=== PATIENT | female | born 1985 | race African-American/Black ===

== ENCOUNTER 2017-01-28 00:05 | Emergency (ER) | payer OTHER, MEDICAID ==
[~2017-01-28] VITALS: Ht 177.8 cm; Wt 102.5 kg
[~2017-01-28 00:05] MED LIST: CIPR500T4 PO; Z.0.NO CURRENT MEDS
[2017-01-28 00:25] VITALS: BP 112/63; PULSE 84; RESP 16; TEMP 98.7; O2SAT 97
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
[2017-01-28] MEDS ORDERED: IBUP800T23 PO (01:04)
[2017-01-28] MEDS ORDERED: ROBA750T PO (01:04)
[2017-01-28 01:17] VITALS: BP 110/64; TEMP 98.5
== END 2017-01-28 01:40 | disposition home or self-care (01) ==
LOC: PHED 00:05
DX: S16.1XXA Strain of muscle, fascia and tendon at neck level, initial encounter (principal); V89.2XXA Person injured in unspecified motor-vehicle accident, traffic, initial encounter; Y92.410 Unspecified street and highway as the place of occurrence of the external cause
CPT/HCPCS: 99283

== ENCOUNTER 2017-08-20 14:40 | Emergency (ER) | payer MEDICAID, OTHER ==
[~2017-08-20] VITALS: Ht 177.8 cm; Wt 100.0 kg
[~2017-08-20 14:40] MED LIST changes: -CIPR500T4 PO; +IBUP1TAB7 PO; +ROBA750T PO; -Z.0.NO CURRENT MEDS
[2017-08-20 14:45] VITALS: BP 115/66; PULSE 85; RESP 16; TEMP 99.2; O2SAT 100
[2017-08-20 14:57] LABS: BILIRUBIN, URINE NEG (NEG); BLOOD, URINE TRACE (NEG); GLUCOSE,URINE NEG (NEG); KETONE, URINE NEG (NEG); NITRITE,URINE POS (NEG); PH, URINE 6.5 (5.0-8.5); URINE COLOR YELLOW (YELLW/STRAW); URINE LEUKOCYTE ESTERASE TRACE (NEG)
[2017-08-20 15:07] LABS: AMORPHOUS SEDIMENT, URINE FEW; BACTERIA, URINE MOD /hpf; RBC, URINE 0-3 /hpf (0-3); SQUAMOUS EPITHELIAL CELL URINE 0-5 /hpf (0-5)
[2017-08-20] MEDS ORDERED: SODIUM CHLOR 0.9% 1000 ML INJ 1,000 ML IV ONE (15:08)
[2017-08-20] MEDS ORDERED: SODIUM CHLORIDE 0.9% FLUSH 10 ML FLUSH IVF PRN (15:15)
--- NOTE | 2017-08-20 15:20 | PD ---
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 Patient reports that she thinks that she may be about 3 weeks , reports that her last menstrual cycle was on July 26, 2016. Patient reports that for the past 2 days, she has noticed increased lower abdominal cramping, reports that the last time she had this, she had an ectopic at 12 weeks. Patient reports that her ectopic was on the left, reports "they took out my fallopian tube on the left." Patient here as she was concerned that with the mild cramping on the right lower abdomen , reports that sometimes she has pains to her left lower abdomen; she is concerned that she may have an ectopic . Patient reports that she has had minimal pink tinged vaginal discharge for the past 2 days. Reports no fevers or chills, reports that the cramping to her abdomen does move in the left side to her right side, reports that the cramping is intermittent in nature. Patient reports that she does not have an [facility] SOFTWARE [facility] yet as she just got her medical insurance. [facility] Past Medical History Medical History: Denies Significant Hx Diminished Hearing: No ?: LMP: 07/26/17 Ectopic : Yes (L FALLOPIAN TUBE REMOVED) Past Surgical History Other Surgery: Yes (hx of ectopic ) Social History Alcohol Use: Yes (social) Tobacco Use: No Substance Use: No Allergies-Medications (Allergen,Severity, Reaction): Coded Allergies: No Known Allergies (Verified Adverse Reaction, Unknown, 08/20/17) Reported Meds & Prescriptions Reported Meds & Active Scripts Active Macrobid (Nitrofurantoin Monoh/Nitrofur Macro) 100 Mg Cap 100 Mg PO BID 10 Days Review of Systems General / Constitutional: No: Fever Eyes: No: Visual changes HENT: No: Headaches Cardiovascular: No: Chest Pain or Discomfort Respiratory: No: Shortness of Breath Gastrointestinal: Positive: Abdominal Pain Genitourinary: Positive: Discharge, Vaginal Bleeding, No: Dysuria Musculoskeletal: No: Pain Skin: No Rash Neurologic: No: Weakness Psychiatric: No: Depression Endocrine: No: Polydipsia Hematologic/Lymphatic: No: Easy Bruising Physical Exam Narrative GENERAL: Mild distress SKIN: Focused skin assessment warm/dry. HEAD: Atraumatic. Normocephalic. EYES: Pupils equal and round. No scleral icterus. No injection or drainage. ENT: No nasal bleeding or discharge. Mucous membranes pink and moist. NECK: Trachea midline. No JVD. CARDIOVASCULAR: Regular rate and rhythm. No murmur appreciated. RESPIRATORY: No accessory muscle use. Clear to auscultation. Breath sounds equal bilaterally. GASTROINTESTINAL: Abdomen soft, non-tender, nondistended. Hepatic and splenic margins not palpable. MUSCULOSKELETAL: No obvious deformities. No clubbing. No cyanosis. No edema. NEUROLOGICAL: Awake and alert. No obvious cranial nerve deficits. Motor grossly within normal limits. Normal speech. PSYCHIATRIC: Appropriate mood and affect; insight and judgment normal. Data Data Last Documented VS Vital Signs Date Time Temp Pulse Resp B/P (MAP) Pulse Ox O2 Delivery O2 Flow Rate FiO2 08/20/17 14:45 99.2 85 16 115/66 (82) 100 Orders Orders Urinalysis - C+S If Indicated (08/20/17 14:42) Ed Urine Pregnancytest Poc (08/20/17 14:42) Urine Culture (08/20/17 14:50) Beta Hcg (Quant/Titer) (08/20/17 15:08) Complete Blood Count With Diff (08/20/17 15:08) Comprehensive Metabolic Panel (08/20/17 15:08) Complete Rh (08/20/17 15:08) Iv Access Insert/Monitor (08/20/17 15:08) Ecg Monitoring (08/20/17 15:08) Sodium Chloride 0.9% Flush (Ns Flush) (08/20/17 15:15) Sodium Chlor 0.9% 1000 Ml Inj (Ns 1000 M (08/20/17 15:08) Gc And Chlamydia Pcr (08/20/17 15:15) Wet Prep Profile (08/20/17 15:15) Us Pelvis (Ques Pr/Ect)W Trans (08/20/17 ) Ceftriaxone Inj (Rocephin Inj) (08/20/17 16:00) Labs Laboratory Tests Test 08/20/17 14:50 08/20/17 15:10 08/20/17 16:00 Urine Color YELLOW Urine Turbidity CLEAR Urine pH 6.5 Urine Specific [place] 1.025 Urine Protein TRACE mg/dL Urine Glucose (UA) NEG mg/dL Urine Ketones NEG mg/dL Urine Occult Blood TRACE Urine Nitrite POS Urine Bilirubin NEG Urine Urobilinogen 0.2 MG/DL Urine Leukocyte Esterase TRACE Urine RBC 0-3 /hpf Urine WBC 6-8 /hpf Urine Squamous Epithelial Cells 0-5 /hpf Urine Amorphous Sediment FEW Urine Bacteria MOD /hpf Microscopic Urinalysis Comment CULTURE INDICATED White Blood Count 7.0 TH/MM3 Red Blood Count 4.30 MIL/MM3 Hemoglobin 9.3 GM/DL Hematocrit 30.5 % Mean Corpuscular Volume 70.8 FL Mean Corpuscular Hemoglobin 21.7 PG Mean Corpuscular Hemoglobin Concent 30.7 % Red Cell Distribution Width 15.6 % Platelet Count 375 TH/MM3 Mean Platelet Volume 9.0 FL Neutrophils (%) (Auto) 67.8 % Lymphocytes (%) (Auto) 20.4 % Monocytes (%) (Auto) 8.7 % Eosinophils (%) (Auto) 1.1 % Basophils (%) (Auto) 2.0 % Neutrophils # (Auto) 4.8 TH/MM3 Lymphocytes # (Auto) 1.4 TH/MM3 Monocytes # (Auto) 0.6 TH/MM3 Eosinophils # (Auto) 0.1 TH/MM3 Basophils # (Auto) 0.1 TH/MM3 CBC Comment AUTO DIFF Differential Comment AUTO DIFF CONFIRMED Ovalocytes 1+ Blood Urea Nitrogen 10 MG/DL Creatinine 0.62 MG/DL Random Glucose 90 MG/DL Total Protein 8.3 GM/DL Albumin 4.0 GM/DL Calcium Level 8.9 MG/DL Alkaline Phosphatase 46 U/L Aspartate Amino Transf (AST/SGOT) 10 U/L Alanine Aminotransferase (ALT/SGPT) 15 U/L Total Bilirubin 0.1 MG/DL Sodium Level 136 MEQ/L Potassium Level 3.6 MEQ/L Chloride Level 106 MEQ/L Carbon Dioxide Level 24.6 MEQ/L Anion Gap 5 MEQ/L Estimat Glomerular Filtration Rate 136 ML/MIN Human Chorionic Gonadotropin, Quant 1546 MIU/ML Clue Cells (Wet Prep) PRESENT Vaginal Trichomonas (Wet Prep) NONE SEEN Vaginal Yeast (Wet Prep) NONE SEEN MDM Medical Decision Making Medical Screen Exam Complete: Yes Emergency Medical Condition: Yes Medical Record Reviewed: Yes Interpretation(s) Vital Signs Date Time Temp Pulse Resp B/P (MAP) Pulse Ox O2 Delivery O2 Flow Rate FiO2 08/20/17 14:45 99.2 85 16 115/66 (82) 100 Differential Diagnosis Cervicitis, ectopic , early , appendicitis, ovarian torsion, threatened miscarriage Narrative Course Patient is a 32-year-old female who presents the emergency room for evaluation of possible ectopic . Patient reports that her last menstrual period was in July 26, 2017, this would put her at 3 weeks, 4 days of , with a due date of May 02, 2018. Patient reports concerns for possible ectopic as she has been having minimal pain is discharged with lower abdominal cramping. Patient reports that she has had 2 full-term pregnancies, reports that her last resulted in ectopic at 12 weeks. Patient has not follow-up with [employer] SOFTWARE [employer] yet, she is concerned for possible topic today. During the course of the patients emergency department visit, the patients history, examination, and differential diagnosis were reviewed with the patient. 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 The patient had an IV access obtained and blood work sent for analysis. The patient was initially provided IV fluids. The patients laboratory studies were reviewed and remarkable for: Laboratory Tests Test 08/20/17 14:50 08/20/17 15:10 08/20/17 16:00 Urine Color YELLOW (YELLW/STRAW) Urine Turbidity CLEAR (CLEAR) Urine pH 6.5 (5.0-8.5) Urine Specific [place] 1.025 (1.002-1.035) Urine Protein TRACE mg/dL (NEG-TRACE) Urine Glucose (UA) NEG mg/dL (NEG) Urine Ketones NEG mg/dL (NEG) Urine Occult Blood TRACE (NEG) Urine Nitrite POS (NEG) Urine Bilirubin NEG (NEG) Urine Urobilinogen 0.2 MG/DL (LESS THAN Urine Leukocyte Esterase TRACE (NEG) Urine RBC 0-3 /hpf (0-3) Urine WBC 6-8 /hpf (0-5) Urine Squamous Epithelial Cells 0-5 /hpf (0-5) Urine Amorphous Sediment FEW Urine Bacteria MOD /hpf (NONE) Microscopic Urinalysis Comment CULTURE INDICATED White Blood Count 7.0 TH/MM3 (4.0-11.0) Red Blood Count 4.30 MIL/MM3 (4.00-5.30) Hemoglobin 9.3 GM/DL (11.6-15.3) Hematocrit 30.5 % (35.0-46.0) Mean Corpuscular Volume 70.8 FL (80.0-100.0) Mean Corpuscular Hemoglobin 21.7 PG (27.0-34.0) Mean Corpuscular Hemoglobin Concent 30.7 % (32.0-36.0) Red Cell Distribution Width 15.6 % (11.6-17.2) Platelet Count 375 TH/MM3 (150-450) Mean Platelet Volume 9.0 FL (7.0-11.0) Neutrophils (%) (Auto) 67.8 % (16.0-70.0) Lymphocytes (%) (Auto) 20.4 % (9.0-44.0) Monocytes (%) (Auto) 8.7 % (0.0-8.0) Eosinophils (%) (Auto) 1.1 % (0.0-4.0) Basophils (%) (Auto) 2.0 % (0.0-2.0) Neutrophils # (Auto) 4.8 TH/MM3 (1.8-7.7) Lymphocytes # (Auto) 1.4 TH/MM3 (1.0-4.8) Monocytes # (Auto) 0.6 TH/MM3 (0-0.9) Eosinophils # (Auto) 0.1 TH/MM3 (0-0.4) Basophils # (Auto) 0.1 TH/MM3 (0-0.2) CBC Comment AUTO DIFF Differential Comment AUTO DIFF CONFIRMED Ovalocytes 1+ (NORMAL) Blood Urea Nitrogen 10 MG/DL (7-18) Creatinine 0.62 MG/DL (0.50-1.00) Random Glucose 90 MG/DL (74-106) Total Protein 8.3 GM/DL (6.4-8.2) Albumin 4.0 GM/DL (3.4-5.0) Calcium Level 8.9 MG/DL (8.5-10.1) Alkaline Phosphatase 46 U/L (45-117) Aspartate Amino Transf (AST/SGOT) 10 U/L (15-37) Alanine Aminotransferase (ALT/SGPT) 15 U/L (10-53) Total Bilirubin 0.1 MG/DL (0.2-1.0) Sodium Level 136 MEQ/L (136-145) Potassium Level 3.6 MEQ/L (3.5-5.1) Chloride Level 106 MEQ/L (98-107) Carbon Dioxide Level 24.6 MEQ/L (21.0-32.0) Anion Gap 5 MEQ/L (5-15) Estimat Glomerular Filtration Rate 136 ML/MIN (>89) Human Chorionic Gonadotropin, Quant 1546 MIU/ML (0-5) Clue Cells (Wet Prep) PRESENT (NONE) Vaginal Trichomonas (Wet Prep) NONE SEEN (NONE) Vaginal Yeast (Wet Prep) NONE SEEN (NONE) Radiology studies were reviewed and remarkable for Last Impressions Pelvis Ultrasound 08/20/17 0000 Signed Impressions: Service Date/Time: Sunday, August 20, 2017 15:31 - CONCLUSION: 1. No evidence of an intrauterine . The endometrium is mildly inhomogeneous with a gestational sac. This study does not exclude ectopic . 2. Bilateral mildly complex cysts in the ovaries. 3. Small amount of free fluid. Christopher Ya MD HCG quant: 1,546 Pelvic US does not show evidence of IUP, she does have b/l complex cysts I did review case with Dr. Franklin ([facility] Hospitalist), who recommends repeat HCG quant in 48 hours. Ectopic cannot be excluded at this time. Patients HBG is 9.3 which seems to be her baseline when compared to previous HCG quant's. Discussed with patient that I cannot exclude ectopic at this time, she will need to have repeat hcg quant in 48 hours. Also recommended for patient to follow-up with [facility]. Patient at this time does not have any abdominal pain or cramping, discussed that her discharge diagnosis will be threatened miscarriage as she is having spotting vs ectopic vs early . Patient asymptomatic during evaluation in the ER, patient is stable for discharge with outpatient follow up. All labs as well as studies were reviewed with patient in detail. Signs and symptoms of when to return to the emergency room was reviewed with the patient. patient will follow up with all cultures from today. Patient is positive for clue cells on wet prep- this was reviewed with patient - flagyl held as this is contraindicated early in Patient was thankful for care. Diagnosis Primary Impression: Ectopic of ovary Qualified Codes: O00.219 - Unspecified ovarian with intrauterine Additional Impressions: UTI (urinary tract infection) Qualified Codes: N30.00 - Acute cystitis without hematuria Anemia Qualified Codes: D64.9 - Anemia, unspecified Bacterial vaginosis Threatened in early Referrals: [facility] Patient Instructions: General Instructions Departure Forms: Tests/Procedures, Work Release Enter return to work date: Aug 21, 2017 Additional Instructions: Please provide patient with a copy of their lab work and studies at discharge* * Please follow up with your ct technician as soon as possible You will need your hCG quant repeated in 48 hours Return to the ER if symptoms worsen or progress Return to the ER as needed Please follow up with all cultures from today Med/Other Pt SpecificInfo: Prescription(s) given Scripts Nitrofurantoin Monohydrate Macrocrystals (Macrobid) 100 Mg Cap 100 MG PO BID for Infection for 10 Days, #20 CAP 0 Refills Prov: Xuan Mak DO 08/20/17 Disposition: 01 DISCHARGE HOME Condition: Stable Xuan Mak DO Aug 20, 2017 15:20
[2017-08-20 15:36] LABS: AUTOMATED NEUTROPHIL # 4.8 TH/MM3 (1.8-7.7); BASOPHIL # 0.1 TH/MM3 (0-0.2); EOSINOPHIL # 0.1 TH/MM3 (0-0.4); EOSINOPHIL % 1.1 % (0.0-4.0); HEMATOCRIT 30.5 % (35.0-46.0); HEMOGLOBIN 9.3 GM/DL (11.6-15.3); LYMPH % 20.4 % (9.0-44.0); LYMPHOCYTE # 1.4 TH/MM3 (1.0-4.8); MEAN CELL VOLUME 70.8 FL (80.0-100.0); MEAN CORPUSCULAR HEMOGLOBIN 21.7 PG (27.0-34.0); MEAN CORPUSCULAR HGB CONC 30.7 % (32.0-36.0); MONO % 8.7 % (0.0-8.0); MONOCYTE # 0.6 TH/MM3 (0-0.9); NEUT % 67.8 % (16.0-70.0); PLATELET COUNT 375 TH/MM3 (150-450); RED CELL DISTRIBUTION WIDTH 15.6 % (11.6-17.2)
[2017-08-20 15:44] LABS: CHLORIDE 106 MEQ/L (98-107); SODIUM (NA) 136 MEQ/L (136-145)
[2017-08-20 15:47] LABS: BICARBONATE 24.6 MEQ/L (21.0-32.0); CALCIUM 8.9 MG/DL (8.5-10.1); GLUCOSE,RANDOM 90 MG/DL (74-106)
[2017-08-20 15:48] LABS: BLOOD UREA NITROGEN 10 MG/DL (7-18)
[2017-08-20 15:50] LABS: ALT (GPT) 15 U/L (10-53)
[2017-08-20 15:51] LABS: AST (GOT) 10 U/L (15-37); CREATININE 0.62 MG/DL (0.50-1.00); GLOMERULAR FILTRATION RATE 136 ML/MIN (>89)
[2017-08-20 15:52] LABS: TOTAL BILIRUBIN ADULT 0.1 MG/DL (0.2-1.0); TOTAL PROTEIN 8.3 GM/DL (6.4-8.2)
[2017-08-20 15:53] LABS: ALKALINE PHOSPHATASE 46 U/L (45-117)
[2017-08-20 16:00] VITALS: BP 120/68; PULSE 82; RESP 16; O2SAT 99
[2017-08-20] MEDS ORDERED: cefTRIAXone INJ 1,000 MG in SODIUM CHLORIDE 0.9% INJ 100 ML IV ONE (16:00)
--- NOTE | 2017-08-20 16:21 | RADRPT ---
EXAM DATE/TIME: 08/20/2017 15:31 [place] COMPARISON: No previous studies available for comparison. INDICATIONS : 4 para 2 female with pelvic pain.. LAB(S): Beta-hC,546 MEDICAL HISTORY : . History of ectopic . SURGICAL HISTORY : Left fallopian tube removed. ENCOUNTER: Initial ACUITY: 2 days PAIN SCORE: 5/10 LOCATION: Bilateral pelvis MEASUREMENTS: UTERUS: 10.5 x 6.6 x 5.0 cm ENDOMETRIAL STRIPE: 10 mm RIGHT OVARY: 3.8 x 3.5 x 3.6 cm LEFT OVARY: 3.8 x 3.1 x 2.9 cm FREE FLUID: Yes posterior cul de sac FINDINGS: UTERUS: The myometrium has homogeneous echotexture without mass. The endometrium is mildly inhomogeneous with no evidence of a gestational sac. RIGHT OVARY: There is a 2.8 x 2.3 x 2.5 cm mildly complex cyst with possible septation and debris. There is no int ernal color flow. LEFT OVARY: There is a mildly complex 2.5 x 2.2 x 2.1 cm cyst with apparent septation and no color flow. MISCELLANEOUS: There is a small amount of free fluid in the cul-de-sac. CONCLUSION: 1. No evidence of an intrauterine . The endometrium is mildly inhomogeneous with a gestation al sac. This study does not exclude ectopic . 2. Bilateral mildly complex cysts in the ovaries. 3. Small amount of free fluid. Christopher Ya MD on August 20, 2017 at 16:16 Board Certified Radiologist. This report was verified electronically.
[2017-08-20 16:45] LABS: OVALOCYTES 1+ (NORMAL)
[2017-08-20] MEDS ORDERED: MACR100C2 PO (17:16)
== END 2017-08-20 17:42 | disposition home or self-care (01) ==
LOC: PHED 14:40
DX: O00.209 Unspecified ovarian pregnancy without intrauterine pregnancy (principal); O34.81 Maternal care for other abnormalities of pelvic organs, first trimester; N83.202 Unspecified ovarian cyst, left side; N83.201 Unspecified ovarian cyst, right side; O23.591 Infection of other part of genital tract in pregnancy, first trimester; N76.0 Acute vaginitis; O20.0 Threatened abortion; O99.011 Anemia complicating pregnancy, first trimester
CPT/HCPCS: 76700; 76817; 80053; 81001; 84702; 84703; 85025; 87086; 87210; 87491; 87591; 96361; 96365; 99284; J0696; J7030

== ENCOUNTER 2017-08-31 22:26 | Emergency (ER) | payer OTHER ==
[~2017-08-31] VITALS: Ht 177.8 cm; Wt 104.0 kg
[~2017-08-31 22:26] MED LIST changes: -IBUP1TAB7 PO; +MACR100C2 PO; -ROBA750T PO
[2017-08-31 22:33] VITALS: BP 110/68; PULSE 103; RESP 16; TEMP 98.4; O2SAT 100
--- NOTE | 2017-08-31 23:34 | PD ---
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 Patient reports she is 5 weeks . Last menstrual period was 07/26/17. Patient reports she is ectopic/Ab1. Patient underwent left salpingectomy. Patient was seen in the emergency department 08/20/17 at 3 weeks of and told she may have an ectopic . Patient has had no subsequent vaginal bleeding since that visit until this evening. Patient states discomfort at times when present is 7/10 in intensity but has been intermittent and not continuous. Patient denies any heavy bleeding passing of clots or any tissue. Patient does not know her blood type. Patient reports she did not have a quantitative hCG performed at 48 hours following her 08/20/17 visit. Patient has her first [facility] appointment 09/25/17. Patient is unable to identify exacerbating or alleviating factors. PFSH Past Medical History Narrative Medical ectopic 1; left salpingectomy; occasional alcohol use; nursing notes reviewed Diminished Hearing: No ?: Ectopic : Yes (L FALLOPIAN TUBE REMOVED) Past Surgical History Other Surgery: Yes (hx of ectopic ) Social History Alcohol Use: Yes (social) Tobacco Use: No Substance Use: No Allergies-Medications (Allergen,Severity, Reaction): Coded Allergies: No Known Allergies (Verified Adverse Reaction, Unknown, 08/31/17) Reported Meds & Prescriptions Reported Meds & Active Scripts Active Macrobid (Nitrofurantoin Monoh/Nitrofur Macro) 100 Mg Cap 100 Mg PO BID 10 Days Review of Systems Except as stated in HPI: all other systems reviewed are Neg General / Constitutional: No: Fever, Chills HENT: No: Congestion Cardiovascular: No: Chest Pain or Discomfort Respiratory: No: Shortness of Breath Gastrointestinal: Positive: Abdominal Pain (RLQ), No: Nausea, Vomiting Genitourinary: Positive: Pelvic Pain, Vaginal Bleeding, No: Dysuria Musculoskeletal: No: Myalgias, Arthralgias Skin: No Rash Neurologic: No: Weakness Psychiatric: No: Anxiety Hematologic/Lymphatic: No: Lymph Node Enlargement Physical Exam Narrative GENERAL: Well-developed well-nourished female in no acute distress no respiratory distress SKIN: Warm and dry. HEAD: Normocephalic. EYES: No scleral icterus. No injection or drainage. NECK: Supple, trachea midline. No JVD or lymphadenopathy. CARDIOVASCULAR: Regular rate and rhythm without murmurs, gallops, or rubs. RESPIRATORY: Breath sounds equal bilaterally. No accessory muscle use. GASTROINTESTINAL: Abdomen soft, non-tender, nondistended. Pelvic exam: Normal external exam no redness induration or lesion; speculum exam scant pink tinged mucus no blood no clots no tissue cervical loss is not visualized as uterus is tilted; bimanual exam cervical loss is closed no palpable adnexal tenderness. MUSCULOSKELETAL: No cyanosis, or edema. BACK: Nontender without obvious deformity. No CVA tenderness. Data Data Last Documented VS Vital Signs Date Time Temp Pulse Resp B/P (MAP) Pulse Ox O2 Delivery O2 Flow Rate FiO2 09/01/17 01:44 75 16 113/60 (77) 100 Room Air 08/31/17 22:33 98.4 Orders Orders Beta Hcg (Quant/Titer) (08/31/17 23:04) Complete Blood Count With Diff (08/31/17 23:04) Basic Metabolic Panel (Bmp) (08/31/17 23:04) Type And Screen (08/31/17 23:04) Us Pelvis (Ques Pr/Ect)W Trans (08/31/17 ) Urinalysis - C+S If Indicated (08/31/17 23:04) Iv Access Insert/Monitor (08/31/17 23:04) Ed Discharge Order (09/01/17 02:10) Labs Laboratory Tests Test 08/31/17 23:27 White Blood Count 8.3 TH/MM3 Red Blood Count 4.04 MIL/MM3 Hemoglobin 9.2 GM/DL Hematocrit 28.8 % Mean Corpuscular Volume 71.3 FL Mean Corpuscular Hemoglobin 22.7 PG Mean Corpuscular Hemoglobin Concent 31.9 % Red Cell Distribution Width 16.1 % Platelet Count 403 TH/MM3 Mean Platelet Volume 9.3 FL Neutrophils (%) (Auto) 68.8 % Lymphocytes (%) (Auto) 21.2 % Monocytes (%) (Auto) 8.5 % Eosinophils (%) (Auto) 1.0 % Basophils (%) (Auto) 0.5 % Neutrophils # (Auto) 5.7 TH/MM3 Lymphocytes # (Auto) 1.8 TH/MM3 Monocytes # (Auto) 0.7 TH/MM3 Eosinophils # (Auto) 0.1 TH/MM3 Basophils # (Auto) 0.0 TH/MM3 CBC Comment AUTO DIFF Differential Comment AUTO DIFF CONFIRMED Ovalocytes 1+ Urine Color YELLOW Urine Turbidity CLEAR Urine pH 7.5 Urine Specific [place] 1.010 Urine Protein TRACE mg/dL Urine Glucose (UA) NEG mg/dL Urine Ketones NEG mg/dL Urine Occult Blood NEG Urine Nitrite NEG Urine Bilirubin NEG Urine Urobilinogen 0.2 MG/DL Urine Leukocyte Esterase NEG Urine RBC 0-3 /hpf Urine WBC 0-2 /hpf Urine Squamous Epithelial Cells 0-5 /hpf Microscopic Urinalysis Comment CULT NOT INDICATED Blood Urea Nitrogen 10 MG/DL Creatinine 0.69 MG/DL Random Glucose 72 MG/DL Calcium Level 8.5 MG/DL Sodium Level 137 MEQ/L Potassium Level 3.6 MEQ/L Chloride Level 106 MEQ/L Carbon Dioxide Level 24.9 MEQ/L Anion Gap 6 MEQ/L Estimat Glomerular Filtration Rate 120 ML/MIN Human Chorionic Gonadotropin, Quant 1756 MIU/ML MDM Medical Decision Making Medical Screen Exam Complete: Yes Emergency Medical Condition: Yes Medical Record Reviewed: Yes Interpretation(s) Quant HC ( prior 1546) Last Impressions Pelvis Ultrasound 08/31/17 0000 Signed Impressions: Service Date/Time: Thursday, August 31, 2017 23:33 - CONCLUSION: Fluid in the endometrial cavity. Slight free pelvic fluid. No evidence of IUP Malcolm Oconnor MD CBC & BMP Diagram 08/31/17 23:27 Calcium Level 8.5 Vital Signs Date Time Temp Pulse Resp B/P (MAP) Pulse Ox O2 Delivery O2 Flow Rate FiO2 09/01/17 01:44 75 16 113/60 (77) 100 Room Air 09/01/17 00:27 77 16 107/66 (80) 99 Room Air 08/31/17 22:33 98.4 103 16 110/68 (82) 100 Differential Diagnosis Vaginal bleeding, ectopic , threatened miscarriage, UTI, cervicitis, ruptured ovarian cyst, ovarian torsion Narrative Course IV access obtained specimens collected and sent for resulting stat transvaginal pelvic ultrasound ordered Review of medical records 08/20/17 patient with hemoglobin 9.3 quantitative hCG 1546 ultrasound was no evidence for intrauterine endometrium mildly inhomogeneous with gestational sac study did not exclude ectopic bilateral mildly complex cyst in the ovaries and small amount of free fluid patient's case was discussed with on-call OB hospitalist who recommended repeat quantitative hCG at 48 hours as ectopic was not excluded patient was encouraged after extensive conversation to follow-up with [facility] urgently and to have a repeat quantitative hCG at 48 hours blood type (O+). Discussed case in detail with Dr. Ceballos OB hospitalist reports that based on patient's presentation patient's history patient's quantitative hCG vital signs hemoglobin and ultrasound studies does not appear to be consistent with ectopic at this time but cannot still exclude ectopic does not need admission at this time --will need repeat quant HCG and US Patient with patient's nurse at bedside informed of all lab results imaging results physical exam and recommendations by OB hospitalist. Patient is asymptomatic at this time no active bleeding denies pain. Patient at this time is stable for outpatient management. Patient is encouraged to return immediately to the nearest hospital for vaginal bleeding pain dizziness or any concerns. Patient is aware that an ectopic has not been excluded and does need to have close follow-up with repeat quantitative hCG and repeat ultrasound within 48 hours or sooner should she become symptomatic. Patient is aware she will be at bed rest as well as pelvic rest this is discussed in detail. Patient at this time is considered stable for outpatient management with close follow-up. Physician Communication Physician Communication discussed with Dr Ceballos OB hospitalist; discussed with reading radiologist Diagnosis Primary Impression: Vaginal bleeding in patient at less than 20 weeks gestation Additional Impressions: Qualified Codes: Z3A.01 - Less than 8 weeks gestation of Prior ectopic in first trimester, antepartum Referrals: Edger Technician 2 days Patient Instructions: General Instructions Additional Instructions: Bedrest Pelvic rest Quantitative hCG in 48 hours Return immediately to nearest emergency department for pain, vaginal bleeding, dizziness, or any concerns Take acetaminophen/Tylenol as needed for discomfort Take vitamins Med/Other Pt SpecificInfo: No Change to Meds Disposition: 01 DISCHARGE HOME Condition: Stable Xuan Doll MD August 31, 2017 23:34
[2017-08-31 23:56] LABS: BILIRUBIN, URINE NEG (NEG); BLOOD, URINE NEG (NEG); GLUCOSE,URINE NEG (NEG); KETONE, URINE NEG (NEG); NITRITE,URINE NEG (NEG); PH, URINE 7.5 (5.0-8.5); URINE COLOR YELLOW (YELLW/STRAW); URINE LEUKOCYTE ESTERASE NEG (NEG)
[2017-09-01 00:04] LABS: WBC, URINE 0-2 /hpf (0-5)
[2017-09-01 00:05] LABS: RBC, URINE 0-3 /hpf (0-3); SQUAMOUS EPITHELIAL CELL URINE 0-5 /hpf (0-5)
[2017-09-01 00:06] LABS: AUTOMATED NEUTROPHIL # 5.7 TH/MM3 (1.8-7.7); BASOPHIL % 0.5 % (0.0-2.0); EOSINOPHIL # 0.1 TH/MM3 (0-0.4); HEMATOCRIT 28.8 % (35.0-46.0); HEMOGLOBIN 9.2 GM/DL (11.6-15.3); LYMPH % 21.2 % (9.0-44.0); LYMPHOCYTE # 1.8 TH/MM3 (1.0-4.8); MEAN CELL VOLUME 71.3 FL (80.0-100.0); MEAN CORPUSCULAR HEMOGLOBIN 22.7 PG (27.0-34.0); MEAN CORPUSCULAR HGB CONC 31.9 % (32.0-36.0); MEAN PLATELET VOLUME 9.3 FL (7.0-11.0); MONO % 8.5 % (0.0-8.0); MONOCYTE # 0.7 TH/MM3 (0-0.9); NEUT % 68.8 % (16.0-70.0); PLATELET COUNT 403 TH/MM3 (150-450); RED BLOOD COUNT 4.04 MIL/MM3 (4.00-5.30); RED CELL DISTRIBUTION WIDTH 16.1 % (11.6-17.2); WHITE BLOOD COUNT 8.3 TH/MM3 (4.0-11.0)
[2017-09-01 00:08] LABS: CALCIUM 8.5 MG/DL (8.5-10.1)
[2017-09-01 00:09] LABS: BICARBONATE 24.9 MEQ/L (21.0-32.0)
[2017-09-01 00:12] LABS: CREATININE 0.69 MG/DL (0.50-1.00)
[2017-09-01 00:27] VITALS: BP 107/66; PULSE 77; RESP 16; O2SAT 99
--- NOTE | 2017-09-01 00:46 | RADRPT ---
EXAM DATE/TIME: 08/31/2017 23:33 [facility] COMPARISON: No previous studies available for comparison. INDICATIONS : Pelvic bleeding with . LAB(S): Beta-hC MEDICAL HISTORY : History of left ectopic . SURGICAL HISTORY : Left fallopian tube removed. ENCOUNTER: Subsequent ACUITY: 1 day PAIN SCORE: 0/10 LOCATION: Bilateral pelvis MEASUREMENTS: UTERUS: 10.3 x 5.4 x 5.6 cm cm ENDOMETRIAL STRIPE: >20 mm RIGHT OVARY: 4.1 x 3.4 x 2.3 cm LEFT OVARY: Not visualized. FREE FLUID: Yes FINDINGS: UTERUS: Complex fluid in the endometrial cavity. No evidence of IUP RIGHT OVARY: Ovary contains no mass or significant cystic lesion. LEFT OVARY: Ovary contains no mass or significant cystic lesion. MISCELLANEOUS: Minimal free fluid CONCLUSION: Fluid in the endometrial cavity. Slight free pelvic fluid. No evidence of IUP Malcolm Oconnor MD on September 01, 2017 at 0:42 Board Certified Radiologist. This report was verified electronically.
[2017-09-01 01:01] LABS: OVALOCYTES 1+ (NORMAL)
[2017-09-01 01:44] VITALS: BP 113/60; PULSE 75; RESP 16; O2SAT 100
[2017-09-01 02:39] VITALS: BP 113/68
== END 2017-09-01 02:39 | disposition home or self-care (01) ==
LOC: PHED 22:26
DX: O46.91 Antepartum hemorrhage, unspecified, first trimester (principal); Z3A.01 Less than 8 weeks gestation of pregnancy; Z34.91 Encounter for supervision of normal pregnancy, unspecified, first trimester
CPT/HCPCS: 76700; 76817; 80048; 81001; 84702; 85025; 86850; 86900; 86901; 99284